=== PATIENT | male | born 1990 ===

== ENCOUNTER 2016-11-23 20:50 | Observation (INO) | payer SELFPAY ==
[~2016-11-23] VITALS: Ht 175.3 cm; Wt 109.6 kg
--- NOTE | 2016-11-23 23:00 | DIAGNOSTIC IMAGING REPORT ---
PROCEDURE: CT ABD/PELVIS WITH CONTRAST CLINICAL INDICATION: Right lower quadrant pain. TECHNIQUE: 125 ml of Isovue 300 were injected intravenously and axial images were obtained of the entire abdomen and pelvis with sagittal and coronal reformations. COMPARISON: None. FINDINGS: ABDOMEN: Mild bibasilar dependent atelectasis. Heart size is normal. Hepatic steatosis. Gallbladder, pancreas, spleen, adrenal glands and kidneys are normal. Normal abdominal aorta. PELVIS: Appendix measures 11 mm with mild wall hyperemia. Mildly prominent lower quadrant lymph nodes. Prostate and bladder are normal. No pelvic mass or free fluid. Bones are unremarkable. IMPRESSION: 1. Enlarged appendix with mild wall hyperemia suspicious for acute appendicitis 2. Right lower quadrant mesenteric adenitis 3. Hepatic steatosis 4. Results discussed with Dr. Locke All CT scans at this facility use dose modulation, iterative reconstruction, and/or weight-based dosing when appropriate to reduce radiation dose to as low as reasonably achievable.
--- NOTE | 2016-11-23 23:09 | ED CLINICAL REPORT ---
Clinical Report - Physicians/Mid Levels [facility] [address] [place] [address] 11/23/2016 20:53 Patient: JOSE D NÚÑEZ I Time Seen: 21:Nov 23 2016. Arrived- By private vehicle. Historian- patient. CPT: ER phys charges level 5 (#[id number]). HISTORY OF PRESENT ILLNESS Chief Complaint: ABDOMINAL PAIN. It is described as "pain" and well localized and it is described as located in the right lower quadrant. At its maximum, severity described as moderate. When seen in the E.D., severity described as mild. Modifying factors- worsened by movement. Not relieved by anything. This started today and is still present. The patient has had nausea and loss of appetite. No vomiting or diarrhea. No recent travel. Similar symptoms previously: None. Recent medical care: Not recently seen/assessed. REVIEW OF SYSTEMS No constipation, black stools, hematemesis, difficulty with urination or pain with urination. No urinary frequency, fever, sore throat or throat or chest pain. No difficulty breathing, cough, joint pain or skin rash or rash. No chills, back pain, weakness, diabetic symptoms or easy bruising. All systems otherwise negative, except as recorded above. PAST HISTORY See nurses notes. 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 Abdominal Pain. Gastroenteritis. Additional Surgeries: no known surgeries. Medications: None. Allergies: No Known Drug Allergy. SOCIAL HISTORY Never smoker. Occasional alcohol use. No drug use. ADDITIONAL NOTES The nursing notes have been reviewed. PHYSICAL EXAM Vital Signs: 11/23/2016 21:10 BP: 140/78. HR: 102. RR: 18. O2 saturation: 99%. Temp: 99 F. Pain level now: 4/10. Appearance: Alert. No acute distress. Eyes: Eyes normal inspection. ENT: Pharynx normal. Neck: Normal inspection. CVS: Normal heart rate and rhythm. Heart sounds normal. Pulses normal. Respiratory: No respiratory distress. Breath sounds normal. Chest nontender. Abdomen: Soft. Moderate tenderness in the lower abdomen. Abnormal bowel sounds: diminished. Back: Normal inspection. No CVA tenderness. Skin: Skin warm. Normal skin color. No rash. Neuro: Oriented X 3. No motor deficit. No sensory deficit. LABS, X-RAYS, AND EKG Abdominal CT: partial hyperemia and edema. Abdominal CT performed with IV contrast. The study was interpreted by the radiologist and discussed with the radiologist. Laboratory Tests: CBC w Diff: (BRENDEN: 11/23/2016 21:50) ( [facility] [place] 11/23/2016 22:13) Final results Test Result Flag Units (Reference) WHITE BLOOD COUNT 10.7 K/uL (4.5-11.5) RED BLOOD COUNT 5.99 H M/uL (4.50-5.90) HEMOGLOBIN 17.0 gm/dL (13.5-17.5) HEMATOCRIT 51.8 % (41.0-53.0) MEAN CELL VOLUME 87 fL (80-100) MEAN CORPUSCULAR HGB 29 pg (26-34) MEAN CORPUSCULAR HGB CONC 33 g/dL (31-37) RED CELL DISTRIBUTION WIDTH 12.9 % (11.6-14.8) PLATELET COUNT 137 L K/uL (150-400) LYMPH % 30.7 % (25-40) MONO % 1.8 L % (3-14) GRANULOCYTE % 67.5 CMP: (BRENDEN: 11/23/2016 21:50) ( [facility] [place] [place] 11/23/2016 22:25) Final results Test Result Flag Units (Reference) GLUCOSE 89 mg/dL (70-110) BUN 13 mg/dL (7-18) CREATININE 0.9 mg/dL (0.6-1.3) Estimated GFR >60 mL/min Estimated GFR- >60 mL/min Note: Persistent reduction over 3 months in eGFR<60 mL/min/1.73 m2 defines CKD. Patients with eGFR values>=60 mL/min/1.73 m2 may also have CKD if evidence ofpersistent proteinuria. Additional information may be foundat www.kidney.org. SODIUM 142 mmol/L (136-145) POTASSIUM 3.8 mmol/L (3.5-5.1) CHLORIDE 104 mmol/L (98-107) CARBON DIOXIDE 28 mmol/L (21-32) CALCIUM 9.6 mg/dL (8.5-10.1) TOTAL PROTEIN 8.2 g/dL (6.4-8.2) ALBUMIN 4.2 g/dL (3.3-5.0) BILIRUBIN, TOTAL 0.3 mg/dL (0.0-1.0) ALKALINE PHOSPHATASE 74 U/L (46-116) AST (SGOT) 72 H U/L (15-37) ALT (SGPT) 130 H U/L (12-78) LIPASE 80 U/L (73-393) AMYLASE 47 U/L (25-115) . PROGRESS AND PROCEDURES Course of Care: IV NS Does not want pain medication or anti-emetic . 23:00 11/23/16. CT result returned. Suspect appendicitis. Emesis in CT. Discussed with patient and he is agreeable to admission to the hospital. Zofran 4 mg IV Invanz 1g IV. Patient/family counseled. Old medical records ordered. Disposition orders written. Disposition: Admitted to Acute Care. CLINICAL IMPRESSION Acute appendicitis with localized peritonitis. (Electronically signed by Marco Locke MD 11/23/2016 23:18)
--- NOTE | 2016-11-23 23:09 | ED NURSING NOTES ---
Clinical Report - Nurses [facility] [address] [place] [address] 11/23/2016 20:53 Patient: JOSE D NÚÑEZ I TRIAGE Triage time 21:10 Nov 23 2016. Acuity: LEVEL 3. Chief Complaint: ABDOMINAL PAIN and (RLQ pain, bilat knee pain with climbing stairs, left three fingers numb, bilat arms red). 21:17 11/23/16. SEPSIS SCREEN: Sepsis Screen. Negative (no infection suspected/documented). ZAFAR COMA SCORE: Zafar Coma Scale: 15- eyes open spontaneously (4); best verbal response- oriented x 4 (5); best motor response- obeys commands (6). --21:18 Liane Alvarez R.N. 21:10 11/23/16. BP: 140/78 (regular adult cuff) taken on the left arm, while sitting. HR: 102. RR: 18. O2 saturation: 99% on room air. Temp: 99 F. Pain level now: 09/14. --21:18 Liane Alvarez R.N. ZAFAR COMA SCORE: [place] Coma Scale: 15- eyes open spontaneously (4); best verbal response- oriented x 4 (5); best motor response- obeys commands (6). Zafar Coma Scale. --21:18 Liane Alvarez R.N. Weight: 102 kg stated. Height/Length: 69 inches Per Patient. BMI: 33.2. --21:13 Liane Alvarez R.N. Medications None. --21:13 Liane Alvarez R.N. Allergies No Known Drug Allergy. --21:13 Liane Alvarez R.N. History Arrived by private vehicle. Historian: family, using an layer up via language phone. Accompanied by family and mother, father and sister. This started today. He has had abdominal pain. The pain is described as located in the RLQ. Last oral intake by patient was (1 PM ate, just had some water). 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 SOCIAL HX: Never smoker. Occasional alcohol use; consumes one beer a week. No drug use. No recent travel. No infectious disease exposure. No known contact with a sick individual. ABUSE ASSESSMENT: No report of abuse. SELF HARM ASSESSMENT: A self harm assessment was performed. The patient answered "no" to the question "Do you have thoughts of harming or killing yourself?" and "Have you recently had thoughts about harming or killing others?". --21:18 Liane Alvarez R.N. 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 Gastroenteritis. --21:13 Liane Alvarez R.N. ADDITIONAL SURGERIES: no known surgeries. Interventions ID band on patient. To treatment room. --21:18 Liane Alvarez R.N. PHYSICAL ASSESSMENT 21:18 11/23/16. Ambulatory to room. Patient gowned. GENERAL / NEURO / PSYCH: Alert. Oriented X 4. Appears in no acute distress. HEENT: Mucous membranes are pink. RESPIRATORY: Respirations not labored. Breath sounds within normal limits. CVS: Normal sinus rhythm noted. Capillary refill less than 2 seconds. GI / : Abdomen soft and nontender. Guarding present. Bowel sounds within normal limits. Stool color normal. SKIN: Skin is warm and dry. --21:18 Liane Alvarez R.N. 21:19 11/23/16. ( Burning pain in RLQ). --21:19 Liane Alvarez R.N. NURSING PROGRESS NOTES 21:11/23/16. The plan of care for this patient has been created. Monitoring of patient in place. Patient gowned. Head of bed elevated. Reassurance given. Two patient identifiers checked. Call light placed in reach. Side rails up x 1. Bed placed in lowest position. Brakes of bed on. Patient ready for evaluation- chart flagged and ED physician notified. --21:19 Liane Alvarez R.N. late entry - 21:30 11/23/16. ( Patients family at bedside). --21:59 Liane Alvarez R.N. 21:48 11/23/2016 Site #1 started via IV in the right antecubital space with an 20g angiocath, with aseptic technique and good blood return; one attempt. Blood drawn: rainbow set. Labeled in the presence of the patient and sent to the lab. Saline lock flushed with 10 mL saline. --21:53 Liane Alvarez R.N. 21:53 11/23/2016 Started bag #1 1000 mL IV Fluids IV NS (Saline); at 250 mL/hr over 4 hour(s) via site #1 via IV pump. Allergies verified and confirmed 5 rights. IV patency established. IV site checked: no pain, redness, or swelling. IV flushed thoroughly pre- and post-medication administration. --21:53 Liane Alvarez R.N. 21:59 11/23/16. BP: 128/82 (regular adult cuff) taken on the left arm, while sitting. HR: 93. RR: 18. O2 saturation: 98% on room air. Pain level now: 09/14. --21:59 Liane Alvarez R.N. 22:47 11/23/16. ( Patient just back from CT, reconnected to IV fluids). --22:47 Liane Alvarez R.N. 22:49 11/23/16. BP: 105/52 (large adult cuff) taken on the left arm, while sitting. HR: 94. RR: 18. O2 saturation: 97% on room air. --22:49 Liane Alvarez R.N. 23:14 11/23/16. ( Patient talked to again about antinausea and he says he does not want anything for pain or nausea. Informed he and family we will wait for a bed and then I will call report to the nurse and have him transferred upstairs to the floor. They state their understanding to this.). --23:14 Liane Alvarez R.N. 23:33 11/23/2016 Started 1 gm of Invanz IVPB in bag #1 50 mL; at 120 mL/hr over 30 minute(s) via site #1 via IV pump. Allergies verified and confirmed 5 rights. IV patency established. IV site checked: no pain, redness, or swelling. IV flushed thoroughly pre- and post-medication administration. --23:33 Liane Alvarez R.N. 23:34 11/23/16. BP: 106/68 (large adult cuff) taken on the left arm, while sitting. HR: 94. RR: 18. O2 saturation: 97% on room air. Temp: 98.1 F (oral). Pain level now: 09/14. --23:35 Liane Alvarez R.N. 23:35 11/23/16. ( Patient doing ok, family still at bedside. No blanket wanted). --23:35 Liane Alvarez R.N. 23:57 11/23/16. BP: 110/52 (large adult cuff) taken on the left arm, while sitting. HR: 92. RR: 16. O2 saturation: 96% on room air. Pain level now: 09/14. --23:58 Liane Alvarez R.N. 00:06 11/24/2016 Invanz IVPB Discontinued: bag #2 completed. Total amount infused: 50 mL. IV patency established. IV site checked: no pain, redness, or swelling. IV flushed thoroughly. --00:06 Liane Alvarez R.N. DISPOSITION / DISCHARGE 00:11/24/2016 Site #[address] upon transfer; patent, no pain and no signs of infection or infiltration. Good blood return present. Flushed with 10 mL saline; flushes easily. --00:01 Liane Alvarez R.N. 00:11/24/2016 IV Fluids IV NS Continued: upon transfer at the rate of 250 mL/hr. 750cc mL remaining bag #1. IV patency established. IV site checked: no pain, redness, or swelling. IV flushed thoroughly. --00:02 Liane Alvarez R.N. 00:02 11/24/16. Condition at departure: unchanged. Transported via stretcher by [facility] with IV. Report was given to a nurse via a phone call. Report included patient's care, treatment, medications, reviewed medication reconcilliation, and condition (including any recent changes or anticipated changes). All questions were answered. Report was acknowledged. Bed obtained and ready (204). Patient's personal items include, Patients mother has patients cell phone, wallet, shirt, and coat. --00:02 Liane Alvarez R.N. Departure time: 00:15 Nov 24 2016. --00:15 Liane Alvarez R.N. 00:16 11/24/16. BP: 117/44 (large adult cuff) taken on the left arm, while sitting. HR: 90. RR: 18. O2 saturation: 100% on room air. Temp: 98.2 F (oral). Pain level now: 09/14. --00:17 Liane Alvarez R.N. Locked/Released at 11/24/2016 0:17 by Linae Alvarez R.N.
--- NOTE | 2016-11-23 23:09 | ED ORDER SUMMARY ---
..... Patient: JOSE D NÚÑEZ I OrderSheet [facility] VisitID: [id number] [place] [address] 26y, M Registration Date/Time: 11/23/2016 ORDER SHEET Weight: 102.0 kg (stated) Allergies: No Known Drug Allergy GENERAL ORDERS: CT Abd/Pel w Cont (No) (N/A) Urgent (21:37 11/23/2016 Yaneli TANG) (Ack 21:38 STEPHYurca ER Tech1) (22:46 JSanders R.N.) CBC w Diff Urgent (21:37 11/23/2016 Yaneli TANG) (Ack 21:38 STEPHYurca ER Tech1) (21:52 JSanders R.N.) CMP Urgent (21:37 11/23/2016 Yaneli TANG) (Ack 21:38 STEPHYurca ER Tech1) (21:52 JSanders R.N.) Amylase Urgent (21:37 11/23/2016 Yaneli TANG) (Ack 21:38 STEPHYurca ER Tech1) (21:52 JSanders R.N.) Lipase Urgent (21:37 11/23/2016 Yaneli TANG) (Ack 21:38 STEPHYurcantonio ER Tech1) (21:52 JSanders R.N.) MEDICATION ORDERS: IV FLUIDS: IV NS : initial bolus none -, then 250 mL/hr for 4h (NOW); Routine (21:36 11/23/2016 Yaneli TANG) (Ack 21:39 JSanders R.N.) (21:53 JSanders R.N.) Zofran IV 4 mg (NOW) (23:11 11/23/2016 Yaneli TANG) (Ack 23:13 JSanders R.N.) (Cancelled: Patient [id number] JSanders R.N.) Invanz IV 1 gm/50mL (NOW) (23:11 11/23/2016 Yaneli TANG) (Ack 23:13 JSanders R.N.) (23:33 JSanders R.N.) ORDER SHEET NOTES: [Electronically signed by Marco Locke MD (23:18 11/23/2016)] [Electronically signed by Liane Alvarez R.N. (00:11/24/2016)] [Electronically locked/signed by Liane Alvarez R.N. (00:11/24/2016)]
--- NOTE | 2016-11-23 23:09 | ED NURSING NOTES ---
Clinical Report - Nurses [facility] [address] [place] [address] 11/23/2016 20:53 Patient: JOSE D NÚÑEZ I TRIAGE Triage time 21:10 Nov 23 2016. Acuity: LEVEL 3. Chief Complaint: ABDOMINAL PAIN and (RLQ pain, bilat knee pain with climbing stairs, left three fingers numb, bilat arms red). 21:17 11/23/16. SEPSIS SCREEN: Sepsis Screen. Negative (no infection suspected/documented). ZAFAR COMA SCORE: Zafar Coma Scale: 15- eyes open spontaneously (4); best verbal response- oriented x 4 (5); best motor response- obeys commands (6). --21:18 Liane Alvarez R.N. 21:10 11/23/16. BP: 140/78 (regular adult cuff) taken on the left arm, while sitting. HR: 102. RR: 18. O2 saturation: 99% on room air. Temp: 99 F. Pain level now: 09/14. --21:18 Liane Alvarez R.N. ZAFAR COMA SCORE: [place] Coma Scale: 15- eyes open spontaneously (4); best verbal response- oriented x 4 (5); best motor response- obeys commands (6). Zafar Coma Scale. --21:18 Liane Alvarez R.N. Weight: 102 kg stated. Height/Length: 69 inches Per Patient. BMI: 33.2. --21:13 Liane Alvarez R.N. Medications None. --21:13 Liane Alvarez R.N. Allergies No Known Drug Allergy. --21:13 Liane Alvarez R.N. History Arrived by private vehicle. Historian: family, using an diplomatic interpreter/translator via language phone. Accompanied by family and mother, father and sister. This started today. He has had abdominal pain. The pain is described as located in the RLQ. Last oral intake by patient was (1 PM ate, just had some water). 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 SOCIAL HX: Never smoker. Occasional alcohol use; consumes one beer a week. No drug use. No recent travel. No infectious disease exposure. No known contact with a sick individual. ABUSE ASSESSMENT: No report of abuse. SELF HARM ASSESSMENT: A self harm assessment was performed. The patient answered "no" to the question "Do you have thoughts of harming or killing yourself?" and "Have you recently had thoughts about harming or killing others?". --21:18 Liane Alvarez R.N. 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 Gastroenteritis. --21:13 Liane Alvarez R.N. ADDITIONAL SURGERIES: no known surgeries. Interventions ID band on patient. To treatment room. --21:18 Liane Alvarez R.N. PHYSICAL ASSESSMENT 21:18 11/23/16. Ambulatory to room. Patient gowned. GENERAL / NEURO / PSYCH: Alert. Oriented X 4. Appears in no acute distress. HEENT: Mucous membranes are pink. RESPIRATORY: Respirations not labored. Breath sounds within normal limits. CVS: Normal sinus rhythm noted. Capillary refill less than 2 seconds. GI / : Abdomen soft and nontender. Guarding present. Bowel sounds within normal limits. Stool color normal. SKIN: Skin is warm and dry. --21:18 Liane Alvarez R.N. 21:19 11/23/16. ( Burning pain in RLQ). --21:19 Liane Alvarez R.N. NURSING PROGRESS NOTES 21:11/23/16. The plan of care for this patient has been created. Monitoring of patient in place. Patient gowned. Head of bed elevated. Reassurance given. Two patient identifiers checked. Call light placed in reach. Side rails up x 1. Bed placed in lowest position. Brakes of bed on. Patient ready for evaluation- chart flagged and ED physician notified. --21:19 Liane Alvarez R.N. late entry - 21:30 11/23/16. ( Patients family at bedside). --21:59 Liane Alvarez R.N. 21:48 11/23/2016 Site #1 started via IV in the right antecubital space with an 20g angiocath, with aseptic technique and good blood return; one attempt. Blood drawn: rainbow set. Labeled in the presence of the patient and sent to the lab. Saline lock flushed with 10 mL saline. --21:53 Liane Alvarez R.N. 21:53 11/23/2016 Started bag #1 1000 mL IV Fluids IV NS (Saline); at 250 mL/hr over 4 hour(s) via site #1 via IV pump. Allergies verified and confirmed 5 rights. IV patency established. IV site checked: no pain, redness, or swelling. IV flushed thoroughly pre- and post-medication administration. --21:53 Liane Alvarez R.N. 21:59 11/23/16. BP: 128/82 (regular adult cuff) taken on the left arm, while sitting. HR: 93. RR: 18. O2 saturation: 98% on room air. Pain level now: 09/14. --21:59 Liane Alvarez R.N. 22:47 11/23/16. ( Patient just back from CT, reconnected to IV fluids). --22:47 Liane Alvarez R.N. 22:49 11/23/16. BP: 105/52 (large adult cuff) taken on the left arm, while sitting. HR: 94. RR: 18. O2 saturation: 97% on room air. --22:49 Liane Alvarez R.N. 23:14 11/23/16. ( Patient talked to again about antinausea and he says he does not want anything for pain or nausea. Informed he and family we will wait for a bed and then I will call report to the nurse and have him transferred upstairs to the floor. They state their understanding to this.). --23:14 Liane Alvarez R.N. 23:33 11/23/2016 Started 1 gm of Invanz IVPB in bag #1 50 mL; at 120 mL/hr over 30 minute(s) via site #1 via IV pump. Allergies verified and confirmed 5 rights. IV patency established. IV site checked: no pain, redness, or swelling. IV flushed thoroughly pre- and post-medication administration. --23:33 Liane Alvarez R.N. 23:34 11/23/16. BP: 106/68 (large adult cuff) taken on the left arm, while sitting. HR: 94. RR: 18. O2 saturation: 97% on room air. Temp: 98.1 F (oral). Pain level now: 09/14. --23:35 Liane Alvarez R.N. 23:35 11/23/16. ( Patient doing ok, family still at bedside. No blanket wanted). --23:35 Liane Alvarez R.N. 23:57 11/23/16. BP: 110/52 (large adult cuff) taken on the left arm, while sitting. HR: 92. RR: 16. O2 saturation: 96% on room air. Pain level now: 09/14. --23:58 Liane Alvarez R.N. 00:06 11/24/2016 Invanz IVPB Discontinued: bag #2 completed. Total amount infused: 50 mL. IV patency established. IV site checked: no pain, redness, or swelling. IV flushed thoroughly. --00:06 Liane Alvarez R.N. DISPOSITION / DISCHARGE 00:11/24/2016 Site #[address] upon transfer; patent, no pain and no signs of infection or infiltration. Good blood return present. Flushed with 10 mL saline; flushes easily. --00:01 Liane Alvarez R.N. 00:11/24/2016 IV Fluids IV NS Continued: upon transfer at the rate of 250 mL/hr. 750cc mL remaining bag #1. IV patency established. IV site checked: no pain, redness, or swelling. IV flushed thoroughly. --00:02 Liane Alvarez R.N. 00:02 11/24/16. Condition at departure: unchanged. Transported via stretcher by [employer] with IV. Report was given to a nurse via a phone call. Report included patient's care, treatment, medications, reviewed medication reconcilliation, and condition (including any recent changes or anticipated changes). All questions were answered. Report was acknowledged. Bed obtained and ready (204). Patient's personal items include, Patients mother has patients cell phone, wallet, shirt, and coat. --00:02 Liane Alvarez R.N. Departure time: 00:15 Nov 24 2016. --00:15 Liane Alvarez R.N. 00:16 11/24/16. BP: 117/44 (large adult cuff) taken on the left arm, while sitting. HR: 90. RR: 18. O2 saturation: 100% on room air. Temp: 98.2 F (oral). Pain level now: 09/14. --00:17 Liane Alvarez R.N. Locked/Released at 11/24/2016 0:17 by Liane Alvarez R.N.
--- NOTE | 2016-11-23 23:09 | ED ORDER SUMMARY ---
..... Patient: JOSE D NÚÑEZ I OrderSheet [facility] VisitID: [id number] [place] [address] 26y, M Registration Date/Time: 11/23/2016 ORDER SHEET Weight: 102.0 kg (stated) Allergies: No Known Drug Allergy GENERAL ORDERS: CT Abd/Pel w Cont (No) (N/A) Urgent (21:37 11/23/2016 Yaneli TANG) (Ack 21:38 STEPHYurca ER Tech1) (22:46 JSanders R.N.) CBC w Diff Urgent (21:37 11/23/2016 Yaneli TANG) (Ack 21:38 STEPHYurca ER Tech1) (21:52 JSanders R.N.) CMP Urgent (21:37 11/23/2016 Yaneli TANG) (Ack 21:38 STEPHYurca ER Tech1) (21:52 JSanders R.N.) Amylase Urgent (21:37 11/23/2016 Yaneli TANG) (Ack 21:38 STEPHYurca ER Tech1) (21:52 JSanders R.N.) Lipase Urgent (21:37 11/23/2016 Yaneli TANG) (Ack 21:38 STEPHYurcantonio ER Tech1) (21:52 JSanders R.N.) MEDICATION ORDERS: IV FLUIDS: IV NS : initial bolus none -, then 250 mL/hr for 4h (NOW); Routine (21:36 11/23/2016 Yaneli TANG) (Ack 21:39 JSanders R.N.) (21:53 JSanders R.N.) Zofran IV 4 mg (NOW) (23:11 11/23/2016 Yaneli TANG) (Ack 23:13 JSanders R.N.) (Cancelled: Patient Bqwsxme10:53 JSanders R.N.) Invanz IV 1 gm/50mL (NOW) (23:11 11/23/2016 Yaneli TANG) (Ack 23:13 JSanders R.N.) (23:33 JSanders R.N.) ORDER SHEET NOTES: [Electronically signed by Marco Locke MD (23:18 11/23/2016)] [Electronically signed by Liane Alvarez R.N. (00:11/24/2016)] [Electronically locked/signed by Liane Alvarez R.N. (00:11/24/2016)]
--- NOTE | 2016-11-23 23:09 | ED CLINICAL REPORT ---
Clinical Report - Physicians/Mid Levels [facility] [address] [place] [address] 11/23/2016 20:53 Patient: JOSE D NÚÑEZ I Time Seen: 21:Nov 23 2016. Arrived- By private vehicle. Historian- patient. CPT: ER phys charges level 5 (#[id number]). HISTORY OF PRESENT ILLNESS Chief Complaint: ABDOMINAL PAIN. It is described as "pain" and well localized and it is described as located in the right lower quadrant. At its maximum, severity described as moderate. When seen in the E.D., severity described as mild. Modifying factors- worsened by movement. Not relieved by anything. This started today and is still present. The patient has had nausea and loss of appetite. No vomiting or diarrhea. No recent travel. Similar symptoms previously: None. Recent medical care: Not recently seen/assessed. REVIEW OF SYSTEMS No constipation, black stools, hematemesis, difficulty with urination or pain with urination. No urinary frequency, fever, sore throat or throat or chest pain. No difficulty breathing, cough, joint pain or skin rash or rash. No chills, back pain, weakness, diabetic symptoms or easy bruising. All systems otherwise negative, except as recorded above. PAST HISTORY See nurses notes. 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 Abdominal Pain. Gastroenteritis. Additional Surgeries: no known surgeries. Medications: None. Allergies: No Known Drug Allergy. SOCIAL HISTORY Never smoker. Occasional alcohol use. No drug use. ADDITIONAL NOTES The nursing notes have been reviewed. PHYSICAL EXAM Vital Signs: 11/23/2016 21:10 BP: 140/78. HR: 102. RR: 18. O2 saturation: 99%. Temp: 99 F. Pain level now: 4/10. Appearance: Alert. No acute distress. Eyes: Eyes normal inspection. ENT: Pharynx normal. Neck: Normal inspection. CVS: Normal heart rate and rhythm. Heart sounds normal. Pulses normal. Respiratory: No respiratory distress. Breath sounds normal. Chest nontender. Abdomen: Soft. Moderate tenderness in the lower abdomen. Abnormal bowel sounds: diminished. Back: Normal inspection. No CVA tenderness. Skin: Skin warm. Normal skin color. No rash. Neuro: Oriented X 3. No motor deficit. No sensory deficit. LABS, X-RAYS, AND EKG Abdominal CT: partial hyperemia and edema. Abdominal CT performed with IV contrast. The study was interpreted by the radiologist and discussed with the radiologist. Laboratory Tests: CBC w Diff: (BRENDEN: 11/23/2016 21:50) ( [facility] [place] 11/23/2016 22:13) Final results Test Result Flag Units (Reference) WHITE BLOOD COUNT 10.7 K/uL (4.5-11.5) RED BLOOD COUNT 5.99 H M/uL (4.50-5.90) HEMOGLOBIN 17.0 gm/dL (13.5-17.5) HEMATOCRIT 51.8 % (41.0-53.0) MEAN CELL VOLUME 87 fL (80-100) MEAN CORPUSCULAR HGB 29 pg (26-34) MEAN CORPUSCULAR HGB CONC 33 g/dL (31-37) RED CELL DISTRIBUTION WIDTH 12.9 % (11.6-14.8) PLATELET COUNT 137 L K/uL (150-400) LYMPH % 30.7 % (25-40) MONO % 1.8 L % (3-14) GRANULOCYTE % 67.5 CMP: (BRENDEN: 11/23/2016 21:50) ( [facility] [place]/23/[place] 22:25) Final results Test Result Flag Units (Reference) GLUCOSE 89 mg/dL (70-110) BUN 13 mg/dL (7-18) CREATININE 0.9 mg/dL (0.6-1.3) Estimated GFR >60 mL/min Estimated GFR- >60 mL/min Note: Persistent reduction over 3 months in eGFR<60 mL/min/1.73 m2 defines CKD. Patients with eGFR values>=60 mL/min/1.73 m2 may also have CKD if evidence ofpersistent proteinuria. Additional information may be foundat www.kidney.org. SODIUM 142 mmol/L (136-145) POTASSIUM 3.8 mmol/L (3.5-5.1) CHLORIDE 104 mmol/L (98-107) CARBON DIOXIDE 28 mmol/L (21-32) CALCIUM 9.6 mg/dL (8.5-10.1) TOTAL PROTEIN 8.2 g/dL (6.4-8.2) ALBUMIN 4.2 g/dL (3.3-5.0) BILIRUBIN, TOTAL 0.3 mg/dL (0.0-1.0) ALKALINE PHOSPHATASE 74 U/L (46-116) AST (SGOT) 72 H U/L (15-37) ALT (SGPT) 130 H U/L (12-78) LIPASE 80 U/L (73-393) AMYLASE 47 U/L (25-115) . PROGRESS AND PROCEDURES Course of Care: IV NS Does not want pain medication or anti-emetic . 23:00 11/23/16. CT result returned. Suspect appendicitis. Emesis in CT. Discussed with patient and he is agreeable to admission to the hospital. Zofran 4 mg IV Invanz 1g IV. Patient/family counseled. Old medical records ordered. Disposition orders written. Disposition: Admitted to Acute Care. CLINICAL IMPRESSION Acute appendicitis with localized peritonitis. (Electronically signed by Marco Locke MD 11/23/2016 23:18)
[2016-11-24] VITALS (11 sets, daily range): BP systolic 96–122; BP diastolic 49–79
--- NOTE | 2016-11-24 00:18 | ED DISCHARGE INSTRUCTIONS ---
Patient: JOSE D NÚÑEZ I General Instructions [facility] VisitID: [id number] [address] [place] [address] 26y, M Registration Date/Time: 11/23/2016 Acute appendicitis with localized peritonitis. (Electronically signed by Marco Locke MD 11/23/2016 23:18)
--- NOTE | 2016-11-24 00:18 | ED MED RECONCILIATION SUMMARY ---
Patient: TIFFANY ROOT, JOSE D Radha Medication Reconciliation Report [facility] VisitID: [id number] [address] [place] [address] 26y, M Registration Date/Time: 11/23/2016 Weight: 102.0 kg Height/Length: 69 in. BMI: 33.2 ALLERGIES: No Known Drug Allergy The patient's Home Medications are listed below: NONE. The source(s) of the original Home Medication information: Not obtained. The following Medications were given to the patient in the Emergency Department: IV NS IV Fluids bolus 0, then 250 mL/hr, administered: 11/23/2016 9:53:00 PM Invanz [IVPB] IVPB bolus 0, then 1 gm 120 mL/hr, administered: 11/23/2016 11:33:00 PM The following Medications were prescribed to the patient: None.
--- NOTE | 2016-11-24 00:18 | ED MAR SUMMARY ---
..... Medication Administration Record [facility] [address] [place] [address] Patient: JOSE D NÚÑEZ I Visit ID: [id number] 26y, M Weight: 102.0 kg Height/Length: 69 in BMI: 33.2 ALLERGIES: No Known Drug Allergy Start 21:53 11/23/2016 Liane Alvarez R.N., Continued Upon Transfer 00:01 11/24/2016 Liane Alvarez R.N. Medication Administered: IV NS (SALINE), Dose: IV Fluids over 4 hour(s), Rate: 250 mL/hr, Dispensed: 1000 mL bag, Site: #1 right AC. Medication Ordered: IV NS : initial bolus none -, then 250 mL/hr for 4h (NOW); Routine. Start 23:33 11/23/2016 Liane Alvarez R.N., Stop 00:06 11/24/2016 Liane Alvarez R.N. Medication Administered: INVANZ [IVPB], Dose: 1 gm IVPB over 30 minute(s), Rate: 120 mL/hr, Dispensed: 50 mL bag, Site: #1 right AC. Medication Ordered: Invanz IV 1 gm/50mL (NOW).
--- NOTE | 2016-11-24 00:18 | ED MED RECONCILIATION SUMMARY ---
Patient: TIFFANY ROOT, JOSE D Radha Medication Reconciliation Report [facility] VisitID: [id number] [address] [place] [address] 26y, M Registration Date/Time: 11/23/2016 Weight: 102.0 kg Height/Length: 69 in. BMI: 33.2 ALLERGIES: No Known Drug Allergy The patient's Home Medications are listed below: NONE. The source(s) of the original Home Medication information: Not obtained. The following Medications were given to the patient in the Emergency Department: IV NS IV Fluids bolus 0, then 250 mL/hr, administered: 11/23/2016 9:53:00 PM Invanz [IVPB] IVPB bolus 0, then 1 gm 120 mL/hr, administered: 11/23/2016 11:33:00 PM The following Medications were prescribed to the patient: None.
--- NOTE | 2016-11-24 00:18 | ED MAR SUMMARY ---
..... Medication Administration Record [facility] [address] [place] [address] Patient: JOSE D NÚÑEZ I Visit ID: [id number] 26y, M Weight: 102.0 kg Height/Length: 69 in BMI: 33.2 ALLERGIES: No Known Drug Allergy Start 21:53 11/23/2016 Liane Alvarez R.N., Continued Upon Transfer 00:01 11/24/2016 Liane Alvarez R.N. Medication Administered: IV NS (SALINE), Dose: IV Fluids over 4 hour(s), Rate: 250 mL/hr, Dispensed: 1000 mL bag, Site: #1 right AC. Medication Ordered: IV NS : initial bolus none -, then 250 mL/hr for 4h (NOW); Routine. Start 23:33 11/23/2016 Liane Alvarez R.N., Stop 00:06 11/24/2016 Liane Alvarez R.N. Medication Administered: INVANZ [IVPB], Dose: 1 gm IVPB over 30 minute(s), Rate: 120 mL/hr, Dispensed: 50 mL bag, Site: #1 right AC. Medication Ordered: Invanz IV 1 gm/50mL (NOW).
--- NOTE | 2016-11-24 00:18 | ED DISCHARGE INSTRUCTIONS ---
Patient: JOSE D NÚÑEZ I General Instructions [facility] VisitID: [id number] [address] [place] [place] [address] 26y, M Registration Date/Time: 11/23/2016 Acute appendicitis with localized peritonitis. (Electronically signed by Marco Locke MD 11/23/2016 23:18)
[2016-11-24] MEDS ORDERED: ACETAMINOPHEN325 MG PO (04:12)
--- NOTE | 2016-11-24 07:00 | Consultation Report ---
History Chief Complaint Abdominal pain History of Present Illness A 26-year-old male with approximately 24-hour history of progressive right lower quadrant abdominal pain. Localized right lower quadrant. He described as sharp. Associated with some discomfort slight movement. No fever, no chills. No nausea or vomiting. No diarrhea. No one else in the family is sick. He has never had this pain before. Patient was seen in the emergency room at [facility]. Patient History 1. Acute appendicitis Social History Single. No children. Does not smoke. Drinks alcohol socially. 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 Patient is originally from the [facility] PAST MEDICAL/SURGICAL HISTORY: Unremarkable. FAMILY HISTORY: Mother, age 46 history of hypertension. Following age 49 history of diabetes. Sisters alive and well Medications and Allergies Medications No medications at home Current Medications Sig/Catie Start time Last Medication Dose Route Stop Time Status Admin Famotidine/Sodium 50 ML Q12HR 11/24 0900 AC Chloride IV Metoclopramide HCl 10 MG Q6HR 11/24 0600 AC 11/24 IV 0533 Lactated Ringer's 1,000 ML ASDIRECTED 11/24 0045 AC 11/24 IV 0148 Meperidine HCl 12.5 MG Q30MIN PRN 11/24 0045 AC IV Ondansetron HCl 4 MG Q6H PRN 11/24 0045 AC IV Allergies Coded Allergies: NKA (11/24/16) Reconcile Medications Scheduled Medications Acetaminophen (Acetaminophen 325 MG) 325 MG TAB 325 MG PO PRN (Reported) Review of Systems Other No history of hepatitis, jaundice, rheumatic fever, heart murmur requiring antibiotic, no bleeding tendencies, or blood transfusions. The remaining 12 point review of systems is negative Physical Exam Vital Signs / I&Os Vital Signs Date Time Temp Pulse Resp B/P Pulse O2 O2 Flow FiO2 Ox Delivery Rate 11/24 0600 98.2 80 18 99/60 94 Room Air 11/24 0500 98.2 104 18 96/56 99 Room Air 11/24 0403 97.7 79 18 109/72 96 Room Air 11/24 0300 81 18 109/68 95 Room Air 11/24 0205 98.2 89 18 118/69 95 Room Air 11/24 0024 98.8 94 18 122/79 94 Room Air General Appearance Alert, Oriented X3, Cooperative, No acute distress HEENT Normal exam, Atraumatic, PERRLA, EOMI, Moist mucous membranes Lungs Clear to auscultation Neck Supple, No JVD, No masses, No thyromegaly, No lymphadenopathy, 2+ carotid pulse wo bruit Cardiovascular Regular rate and rhythm Abdomen Normal bowel sounds, Localized tenderness to percussion and palpation right lower quadrant Extremities No cyanosis, No clubbing, No edema Skin warm and dry Neurological No lateralizing signs Psych/Mental Status Mental status normal LAB Results Laboratory Tests 11/230 Chemistry Plasma Sodium (136 - 145 mmol/L) 142 Plasma Potassium (3.5 - 5.1 mmol/L) 3.8 Plasma Chloride (98 - 107 mmol/L) 104 CO2 (Enzymatic) (21 - 32 mmol/L) 28 BUN (7 - 18 mg/dL) 13 Creatinine (0.6 - 1.3 mg/dL) 0.9 Est GFR ( Amer) (mL/min) >60 Est GFR (Non-Af Amer) (mL/min) >60 Glucose (70 - 110 mg/dL) 89 Plasma Calcium (8.5 - 10.1 mg/dL) 9.6 Total Bilirubin (0.0 - 1.0 mg/dL) 0.3 AST (15 - 37 U/L) 72 ALT (12 - 78 U/L) 130 Alkaline Phosphatase (46 - 116 U/L) 74 Total Protein (6.4 - 8.2 g/dL) 8.2 Albumin (3.3 - 5.0 g/dL) 4.2 Amylase (25 - 115 U/L) 47 Lipase (73 - 393 U/L) 80 Hematology WBC (4.5 - 11.5 K/uL) 10.7 RBC (4.50 - 5.90 M/uL) 5.99 Hgb (13.5 - 17.5 gm/dL) 17.0 Hct (41.0 - 53.0 %) 51.8 MCV (80 - 100 fL) 87 MCH (26 - 34 pg) 29 RDW (11.6 - 14.8 %) 12.9 Gran % 67.5 Lymph % (Auto) (25 - 40 %) 30.7 Osborne % (Auto) (3 - 14 %) 1.8 Plt Count, EDTA (150 - 400 K/uL) 137 PUBS MCHC (31 - 37 g/dL) [address] of abdomen consistent with acute appendicitis Assessment and Plan Problem List 1. Acute appendicitis Plan Acute appendicitis. Laparoscopic appendectomy. The procedure is been explained to the patient and his sister, who is in attendance. Risks to include, but not exclusive of trocar site infection, trocar site hernia, damage to local structures, and postoperative intra-abdominal abscess. Patient understands and agrees to proceed. All questions being answered in satisfaction.
[2016-11-24] MEDS ORDERED: HYCET1 ML PO (07:39)
--- NOTE | 2016-11-24 07:40 | Provider's Discharge Care Plan ---
Problem, Goal, Plan Problem List 1. Status post laparoscopic appendectomy Goals: Improve disease control, Therapeutic intervention Instructions: Follow up as directed, Take meds as directed
--- NOTE | 2016-11-24 07:40 | Provider's Discharge Care Plan ---
Problem, Goal, Plan Problem List 1. Status post laparoscopic appendectomy Goals: Improve disease control, Therapeutic intervention Instructions: Follow up as directed, Take meds as directed
--- NOTE | 2016-11-24 08:06 | Operative Report ---
Operative Report Date of Surgery: 11/24/16 Preoperate Diagnosis: appendicitis Postoperative Diagnosis: acute appendicitis Surgeon: Diego Helm MD Finance Effectiveness Manager Surgeon: none Procedure Performed: Laparoscopic appendectomy Anesthesia: Gen. endotracheal Indications: A 26-year-old male with right lower quadrant abdominal pain. CT consistent with acute appendicitis. FINDINGS: Edematous, thickwalled appendix Surgical Technique: Patient brought to the operating room. Placed in the dorsal supine position. Patient underwent general endotracheal anesthesia by the anesthesiology department. After proper anesthesia had taken effect patient's abdomen was prepped using Betadine and draped in a sterile fashion. An infraumbilical incision made clear down to skin and subcutaneous tissue and varies needle was inserted through this site into the abdominal cavity. After ascertaining its appropriate position with suction irrigation and pneumoperitoneum obtained using CO2 insufflation trocar suture 14 15 mmHg pressure. Once this pressure was reached varies needle was removed and replaced the 10 mm trocar. The trocar removed after which which a laparoscopic video camera was introduced into the abdominal cavity. Under direct visualization a 5 mm trocar was placed in the suprapubic region. A separate 5 mm trocar was placed in the left lower quadrant. Each entered the abdominal cavity under direct visualization. The trochars removed , leaving the sleeves behind. Instrumentation was introduced into the abdominal cavity. The aforementioned findings noted, the appendix was identified and the meso- appendix was taken down using the ThunderBeat. The base of the appendix was clipped using the hemo-lock. The appendix was then transected between the hemo-lock using the Endo Marlena. The appendix was placed in a sterile specimen container bag and retrieved from the abdominal cavity and sent to pathology. The appendiceal stump was cauterized using the ThunderBeat. The abdominal cavity right lower quadrant and pelvis was irrigated with warm normal saline antibiotic solution. The irrigant suctioned out. Hemostasis achieved. The pneumoperitoneum released. All trochars removed from the abdominal cavity. All trochar sites were approximated using 4-0 subdermal Polysorb suture. Steri-Strips were placed over the wound. Sterile occlusive dressings were placed over each surgical site. Patient was extubated and transferred to recovery room in stable condition. There were no intraoperative complications. CONDITION: Stable to postoperative anesthesia recovery room COMPLICATIONS: None ESTIMATED BLOOD LOSS: None FLUIDS: 300 cc lactate Ringer's DRAINS: None SPECIMEN: Appendix
== END 2016-11-24 14:00 | disposition home or self-care (01) ==
LOC: ED SRH 20:50 → TRANS SRH 23:10 → ACUTE2 SRH 23:10
PROVIDERS: ADMIT Specialist
PROC: 0DTJ4ZZ Resection of Appendix, Percutaneous Endoscopic Approach (ICD-10-PCS; principal; 2016-11-24 07:30)
DX: K35.80 Unspecified acute appendicitis (principal)
CPT/HCPCS: 29229; 29230; 50002; 60001; 70002; 80102; 80248; 81238; 82794; 82897; 83343; 83587; 83919; 83982; 84038; 90100; 92235; 92530; 95059